=== PATIENT | male | born 1980 | race Caucasian/White ===

== ENCOUNTER 2021-04-26 10:58 | Emergency (ER) | payer OTHER ==
[2021-04-26 11:40] LABS: BILIRUBIN 1+ mg/dL (NEGATIVE); BLOOD 1+ Ery/uL (NEGATIVE); CLARITY CLEAR (CLEAR); COLOR YELLOW (YELLOW); GLUCOSE (U) NORMAL (NORMAL); LEUKOCYTES NEGATIVE Leu/uL (NEGATIVE); NITRITE NEGATIVE (NEGATIVE); PROTEIN 2+ mg/dL (NEGATIVE); SPECIFIC GRAVITY >=1.030 (1.001-1.030); UROBILINOGEN 0.2 mg/dL (0.2-1.0); pH 5.5 (5.0-9.0)
[2021-04-26 11:48] LABS: ALBUMIN 4.1 g/dL (3.4-5.0); BILIRUBIN - TOTAL 0.5 mg/dL (0.2-1.0); BUN/CREAT RATIO (CALC) 12.4 RATIO; CREATININE 0.89 mg/dL (0.67-1.17); GLOBULIN (CALCULATION) 4.4 g/dL; TOTAL PROTEIN 8.5 g/dL (6.4-8.2)
[2021-04-26 11:51] LABS: BASOPHIL 0.6 % (0-2); EOSINOPHIL 2.2 % (0-5); HCT 48.9 % (42.0-52.0); HGB 16.7 g/dl (13.2-18.0); MCH 30.9 pg (25.0-31.0); MCHC 34.2 g/dL (32.0-36.0); MCV 90.6 fL (78.0-100.0); MONOCYTE 5.8 % (0-12); MPV 10.1 fL (6.0-9.5); NEUTROPHIL 66.3 % (41-80); NRBC 0; PLT 217 K/uL (150-400); RDW 12.2 % (11.5-14.0); WBC 12.5 K/uL (4.0-10.5)
[2021-04-26 12:14] LABS: BACTERIA TRACE; CALCIUM OXALATE CRYSTALS TRACE; MUCOUS TRACE; SQUAMOUS EPITHELIAL CELLS RARE
[2021-04-26] MEDS ORDERED: ONDANSETRON ODT4 MG PO (13:50)
[2021-04-26] MEDS ORDERED: FLOMAX0.4 MG PO (13:50)
[2021-04-26] MEDS ORDERED: NORCO 5-325 TA1 EACH PO (13:50)
== END 2021-04-26 14:20 | disposition home or self-care (01) ==
LOC: FER 10:58
PROVIDERS: Emergency Medicine
DX: N13.2 Hydronephrosis with renal and ureteral calculous obstruction (principal)
CPT/HCPCS: 36415; 80053; 81001; 82150; 83690; 85025; J1170; J1885; J2270; J2405; J7030